=== PATIENT | male | born 1965 | race African-American/Black ===

== ENCOUNTER 2023-10-28 04:13 | Inpatient (IN) | payer OTHER, MEDICAID ==
[2023-10-28] VITALS (27 sets, daily range): BP systolic 81–132; BP diastolic 35–88; PULSE 77–168; RESP 15–41; TEMP 97.3–99.3; O2SAT 94–100
[~2023-10-28] VITALS: Ht 190.5 cm; Wt 86.2 kg
[2023-10-28] MEDS: dilTIAZem 25 MG/5 ML VIAL IV ONE ×3 (04:33→05:30)
[2023-10-28] MEDS: LORazepam 2MG/ML-1ML VIAL ONE (04:33)
[2023-10-28] MEDS: LORazepam 2MG/ML-1ML VIAL IV ONE ×3 (04:34→12:17)
[2023-10-28 05:16] LABS: Basophils # (auto) 0 10 ^3/uL (0-0.2); Basophils % (auto) 0.3 % (0.0-2.0); Eosinophils # (auto) 0 10 ^3/uL (0-0.8); Hematocrit 37.7 % (41.0-53.0); Hemoglobin 11.8 g/dL (13.5-17.5); Lymphocytes # (auto) 0.4 10 ^3/uL (0.4-5.4); Lymphocytes % (auto) 8.3 % (10.0-50.0); Mean Corpuscular Hemoglobin 28.3 pg (28.0-32.0); Mean Corpuscular Hgb Conc. 31.4 g/dL (32.0-36.0); Monocytes # (auto) 0.3 10 ^3/uL (0-1.3); Monocytes % (auto) 5.6 % (0.0-12.0); Neutrophils % (auto) 85.8 % (37.0-80.0); Nucleated Red Blood Cells % 0.8 %; Red Blood Cells 4.18 10^6/uL (4.5-5.90); Red Cell Distribution Width 16.9 % (11.8-14.3); White Blood Cell 4.7 10^3/uL (4.4-10.8)
[2023-10-28 05:32] LABS: Alanine Aminotransferase 387 U/L (7-40); Albumin 3.9 g/dL (3.2-4.8); Alkaline Phosphatase 64 U/L (46-116); Anion Gap 18 (5-15); Aspartate Aminotransferase 659 U/L (13-40); BUN/Creatinine Ratio 9.7 (10.0-20.0); Blood Urea Nitrogen 11 mg/dL (9-23); Calcium 8.8 mg/dL (8.5-10.1); Carbon Dioxide 19 mmol/L (20-30); Chloride 106 mmol/L (98-107); Glucose 122 mg/dL (74-106); Potassium 3.6 mmol/L (3.5-5.1); Sodium 143 mmol/L (136-145)
[2023-10-28 05:33] LABS: Total Protein 7.2 g/dL (5.7-8.2)
[2023-10-28] MEDS: ALBUTEROL SULF 2.5 MG/0.5ML(0.5%) NEB SOLN NEB ONE (05:50)
[2023-10-28] MEDS: methylPREDNISolone SOD SUCC 125 MG/2 ML VL IV ONE (06:04)
[2023-10-28 06:05] LABS: INR 1.42 (0.9-1.15); Partial Thromboplastin Time 27.2 SEC (24.5-34.5); Prothrombin Time 14.6 sec (9.3-11.8)
[2023-10-28 06:12] LABS: Base Excess -7.1 mmol/L (-2.0-2.0)
[2023-10-28] MEDS: cefTRIAXone 1GM/50ML D5W 50 ML IV ONE (08:04)
[2023-10-28 10:23] LABS: Urine Bacteria NONE SEEN /hpf (None Seen); Urine Blood Negative /uL (Negative); Urine Clarity HAZY (Clear); Urine Color Yellow (Yellow); Urine Hyaline Cast MANY /lpf (0 - 2); Urine Mucus FEW (None Seen); Urine Protein, UAD 3+ (Negative); Urine WBC 4 /hpf (0 - 3)
[2023-10-28] MEDS: AMIODARONE BOLUS KIT 100 ML IV ONE (11:13)
[2023-10-28] MEDS: ENOXAPARIN SOD 80 MG/0.8ML SYRINGE SC ONE (11:29)
[2023-10-28] MEDS: FUROSEMIDE 40 MG/4 ML VIAL IV ONE ×2 (11:31→15:27)
[2023-10-28] MEDS: AMIODARONE 450mg/250ml AE 250 ML IV SCH (11:40)
[2023-10-28] MEDS: ETOMIDATE (2MG/ML) 20ML VIAL IV ONE (13:05)
[2023-10-28] MEDS: ROCURONIUM 10MG/ML 10ML VIAL IV ONE (13:06)
[2023-10-28] MEDS: MIDAZOLAM DRIP 50 mg/50mL 50 ML IV SCH (13:14)
[2023-10-28] MEDS: IOHEXOL 350 MG/ML 100ML IJ ONE ×2 (13:14→17:21)
[2023-10-28] MEDS ORDERED: ONDANSETRON HCL 4 MG/2 ML VIAL IV PRN (13:45)
[2023-10-28] MEDS ORDERED: NITROGLYCERIN 0.4 MG SL TAB SL PRN (13:45)
[2023-10-28] MEDS ORDERED: DOCUSATE SOD 100 MG CAP PO PRN (13:45)
[2023-10-28] MEDS ORDERED: MORPHINE SULFATE INJ 2 MG/ml SYRG IV PRN (13:45)
[2023-10-28] MEDS ORDERED: DEXTROSE (50%) 50ML SYRG IV PRN (13:45)
[2023-10-28 14:30] LABS: Base Excess -16.7 mmol/L (-2.0-2.0)
[2023-10-28] MEDS ORDERED: LISI-275 PO (14:52)
[2023-10-28] MEDS ORDERED: BISO10TA31 PO (14:52)
[2023-10-28] MEDS ORDERED: FENO160T PO (14:52)
[2023-10-28] MEDS: NOREPINEPHRINE 8 MG/250ML KIT 250 ML IV SCH (14:53)
[2023-10-28] MEDS: NOREPINEPHRINE 8 MG/250ML KIT 250 ML IV ONE (15:09)
[2023-10-28] MEDS: PANTOPRAZOLE 40 MG/10 ML VIAL INJ IV ONE (15:27)
[2023-10-28] MEDS: DOXYCYCLINE 100MG/250ML 250 ML IV SCH (15:34)
[2023-10-28] MEDS: MAGNESIUM SULFATE 1GM/100ML 100 ML IV SCH (15:37)
[2023-10-28] MEDS: SODIUM BICARB 8.4% 50Meq/50ml SYR Vial IV ONE (15:42)
[2023-10-28 15:48] LABS: Amphetamine Screen, Urine Neg (NEGATIVE)
[2023-10-28 15:49] LABS: Barbiturate Scree,Urine Neg (NEGATIVE); Benzodiazephine Screen, Urine Neg (NEGATIVE); Cannabinoid Screen, Urine Neg (NEGATIVE); Cocaine Screen, Urine Neg (NEGATIVE); Opiate Scree,Urine Neg (NEGATIVE); Phencyclidine Screen, Urine Neg (NEGATIVE)
[2023-10-28 16:29] LABS: Base Excess -11.7 mmol/L (-2.0-2.0)
[2023-10-28] MEDS: SODIUM CHLORIDE 0.9% 500 ML IV ONE (17:28)
[2023-10-28] MEDS ORDERED: AMIODARONE 450mg/250ml AE 250 ML IV SCH (17:30)
[2023-10-28 17:49] LABS: Lactic Acid w/Reflex 9.6 mmol/L (0.4-2.0)
[2023-10-28] MEDS: InsuLIN REG 1unit/0.01ml Soln (100units/ml) SC SCH (18:00)
[2023-10-28] MEDS: SODIUM BICARB 50mEq/50ml Vial 50 ML in SOD CHL 0.45% 1,000 ML IV SCH (18:08)
[2023-10-28] MEDS: ACCU-CHEK COMFORT CURVE STRIP VI SCH (18:13)
[2023-10-28] MEDS: LEVALBUTEROL HCL 1.25 MG/3 ML NEB NEB SCH (18:25)
[2023-10-28 19:03] LABS: Chloride 106 mmol/L (98-107); Potassium 4.8 mmol/L (3.5-5.1); Sodium 146 mmol/L (136-145)
[2023-10-28 19:04] LABS: Anion Gap 21 (5-15); Calcium 8.7 mg/dL (8.7-10.4); Carbon Dioxide 19 mmol/L (20-30)
[2023-10-28 19:09] LABS: BUN/Creatinine Ratio 12.2 (10.0-20.0); Blood Urea Nitrogen 18 mg/dL (9-23); Glucose 134 mg/dL (74-106)
[2023-10-28] MEDS: fentaNYL Drip 2500mCg/250mlNS 250 ML IV SCH (20:07)
[2023-10-28] MEDS: IPRATROPIUM BROM 0.5 MG/2.5ML INH SOL NEB SCH (21:12)
[2023-10-28] MEDS: ALBUMIN 5% 250 ML IV ONE ×2 (21:24→22:34)
[2023-10-28] MEDS: ENOXAPARIN SOD 80 MG/0.8ML SYRINGE SC SCH (21:40)
[2023-10-28 22:48] LABS: Base Excess -8.9 mmol/L (-2.0-2.0)
[2023-10-29] VITALS (109 sets, daily range): BP systolic 92–136; BP diastolic 58–93; PULSE 78–105; RESP 12–25; TEMP 98.1–99.1; O2SAT 94–100
[2023-10-29 00:58] LABS: Lactic Acid w/Reflex 8.8 mmol/L (0.4-2.0)
[2023-10-29 03:15] LABS: Hemoglobin 10.2 g/dL (13.5-17.5); Red Cell Distribution Width 17.2 % (11.8-14.3)
[2023-10-29 03:16] LABS: Hematocrit 33.4 % (41.0-53.0); Mean Corpuscular Hemoglobin 28.1 pg (28.0-32.0); Mean Corpuscular Hgb Conc. 30.6 g/dL (32.0-36.0); Mean Corpuscular Volume 91.9 fL (80.0-100.0); Red Blood Cells 3.63 10^6/uL (4.5-5.90); White Blood Cell 15.5 10^3/uL (4.4-10.8)
[2023-10-29 03:19] LABS: Basophils % (manual) 0 (0.0-2.0); Blast Cells 0; Eosinophils % (manual) 0 (0-7); Metamyelocytes % 0; Monocytes % (manual) 0 (0-12); Myelocytes % 0; Promyelocytes % 0; Reactive Lymphocytes 0
[2023-10-29 03:30] LABS: Band Neutrophils % (manual) 13; Lymphocytes % (manual) 1 (10.0-50.0)
[2023-10-29 03:31] LABS: Platelet Estimate Decreased
[2023-10-29 03:32] LABS: INR 2.19 (0.9-1.15); Partial Thromboplastin Time 32.2 SEC (24.5-34.5); Prothrombin Time 21.8 sec (9.3-11.8)
[2023-10-29 03:33] LABS: Albumin 3.5 g/dL (3.2-4.8); Alkaline Phosphatase 52 U/L (46-116); Anion Gap 14 (5-15); BUN/Creatinine Ratio 14.6 (10.0-20.0); Bilirubin, Total 2.2 mg/dL (0.2-1.0); Blood Urea Nitrogen 22 mg/dL (9-23); Calcium 7.4 mg/dL (8.5-10.1); Carbon Dioxide 23 mmol/L (20-30); Chloride 106 mmol/L (98-107); Cholesterol 90 mg/dL (< 200); Glucose 214 mg/dL (74-106); HDL Cholesterol 39 mg/dL (40-59); LDL Cholesterol 41 mg/dL (< 100); Potassium 4.7 mmol/L (3.5-5.1); Sodium 143 mmol/L (136-145); Triglycerides 41 mg/dL (< 150)
[2023-10-29 03:45] LABS: Aspartate Aminotransferase > 6000 U/L (13-40)
[2023-10-29 03:46] LABS: Alanine Aminotransferase 2903 U/L (7-40)
[2023-10-29 03:57] LABS: Magnesium 1.6 mg/dL (1.6-2.6)
[2023-10-29 06:31] LABS: Lactic Acid w/Reflex 4.7 mmol/L (0.4-2.0)
[2023-10-29 07:24] LABS: Base Excess -1.9 mmol/L (-2.0-2.0)
[2023-10-29] MEDS: cefTRIAXone 1GM/50ML D5W 50 ML IV SCH (09:18)
[2023-10-29] MEDS: PANTOPRAZOLE 40 MG/10 ML VIAL INJ IV SCH (09:31)
[2023-10-29] MEDS: FUROSEMIDE 20 MG/2 ML VIAL IV SCH (09:32)
[2023-10-29] MEDS: CLOPIDOGREL BISULFATE 75 MG TAB PO SCH (09:32)
[2023-10-29 12:48] LABS: Lactic Acid w/Reflex 2.7 mmol/L (0.4-2.0)
[2023-10-29] MEDS: MAGNESIUM SULFATE 1GM/100ML 100 ML IV SCH (17:27)
[2023-10-29] MEDS: THIAMINE 100mg/ml INJ (200mg/2ml VIAL) IV ONE (17:27)
[2023-10-29] MEDS: FOLIC ACID 1 MG in D5W 5% 50 ML INJ ONE (18:08)
[2023-10-29 19:28] LABS: Lactic Acid w/Reflex 2.5 mmol/L (0.4-2.0)
[2023-10-29] MEDS: AMIODARONE HCL 200 MG TAB PO SCH (21:35)
[2023-10-30] VITALS (106 sets, daily range): BP systolic 81–146; BP diastolic 51–91; PULSE 70–135; RESP 14–24; TEMP 98.4–102; O2SAT 92–100
[2023-10-30 04:08] LABS: Basophils # (auto) 0 10 ^3/uL (0-0.2); Basophils % (auto) 0.1 % (0.0-2.0); Eosinophils # (auto) 0 10 ^3/uL (0-0.8); Hematocrit 31.7 % (41.0-53.0); Lymphocytes # (auto) 0.5 10 ^3/uL (0.4-5.4); Lymphocytes % (auto) 4.4 % (10.0-50.0); Mean Corpuscular Hgb Conc. 31.4 g/dL (32.0-36.0); Mean Corpuscular Volume 89.2 fL (80.0-100.0); Monocytes # (auto) 0.2 10 ^3/uL (0-1.3); Monocytes % (auto) 1.7 % (0.0-12.0); Neutrophils # (auto) 11.5 10 ^3/uL (1.6-8.6); Neutrophils % (auto) 93.8 % (37.0-80.0); Nucleated Red Blood Cells % 0.1 %; Red Blood Cells 3.56 10^6/uL (4.5-5.90); Red Cell Distribution Width 17.1 % (11.8-14.3); White Blood Cell 12.2 10^3/uL (4.4-10.8)
[2023-10-30 04:24] LABS: Albumin 3.2 g/dL (3.2-4.8); Alkaline Phosphatase 55 U/L (46-116); Anion Gap 7 (5-15); BUN/Creatinine Ratio 21.5 (10.0-20.0); Bilirubin, Total 2.1 mg/dL (0.2-1.0); Blood Urea Nitrogen 17 mg/dL (9-23); Calcium 7.7 mg/dL (8.7-10.4); Chloride 106 mmol/L (98-107); Glucose 104 mg/dL (74-106); Magnesium 1.9 mg/dL (1.6-2.6); Potassium 3.4 mmol/L (3.5-5.1); Sodium 146 mmol/L (136-145); Total Protein 5.8 g/dL (5.7-8.2)
[2023-10-30 04:38] LABS: Alanine Aminotransferase 2773 U/L (7-40); Aspartate Aminotransferase > 6000 U/L (13-40); Carbon Dioxide 33 mmol/L (20-30)
[2023-10-30] MEDS: CALCIUM GLUC 1,000mg/50ml-NS 50 ML IV ONE (06:45)
[2023-10-30] MEDS: POTASSIUM CHL 20MEQ/100ML 100 ML IV SCH (06:45)
[2023-10-30 07:40] LABS: Base Excess 5.3 mmol/L (-2.0-2.0)
[2023-10-30] MEDS ORDERED: CLOP75TA28 PO (09:46)
[2023-10-30] MEDS ORDERED: OMEP20TA PO (09:46)
[2023-10-30] MEDS ORDERED: FURO40TA4 PO (09:46)
[2023-10-30] MEDS ORDERED: HYDR-4798 PO (09:46)
[2023-10-30] MEDS ORDERED: METF-370 PO (09:46)
[2023-10-30] MEDS ORDERED: ATOR20TA PO (09:46)
[2023-10-30] MEDS ORDERED: POTA10TA51 PO (09:46)
[2023-10-30] MEDS: THIAMINE 100mg/ml INJ (200mg/2ml VIAL) IV SCH (09:56)
[2023-10-30] MEDS: LACTULOSE 20Gm/30ML SOLN PO SCH (09:57)
[2023-10-30] MEDS ORDERED: Jevity 1.2 Cal/Fiber 1 Liter GT SCH (11:45)
[2023-10-30] MEDS: FOLIC ACID 1 MG in D5W 5% 50 ML INJ SCH (11:54)
[2023-10-30] MEDS: PROPOFOL 100 ML IV ONE (12:05)
[2023-10-30] MEDS: AMIODARONE BOLUS KIT 100 ML IV ONE ×2 (12:06)
[2023-10-30] MEDS: AMIODARONE 450mg/250ml AE 250 ML IV ONE (12:06)
[2023-10-30] MEDS: AMIODARONE 450mg/250ml AE 250 ML IV SCH ×3 (12:15→19:10)
[2023-10-30] MEDS: PROPOFOL 100 ML IV SCH (12:30)
[2023-10-30] MEDS: CEFEPIME 2GM/50ML NS 50 ML IV SCH (13:08)
[2023-10-30] MEDS: EMPAGLIFLOZIN 10 MG TAB PO SCH (13:12)
[2023-10-30] MEDS ORDERED: VANCOMYCIN PER PHARMACY 0 MG IV SCH (14:15)
[2023-10-30] MEDS: VANCOMYCIN 1GM/200ML 200 ML IV ONE (14:45)
[2023-10-30] MEDS: IBUPROFEN 100MG/5ML ORAL SUSP 100 MG/5 ML UD GT ONE (18:33)
[2023-10-30] MEDS ORDERED: KETOROLAC TROMETH 30 MG/ML 1ML VIAL IV PRN (20:45)
[2023-10-31] VITALS (108 sets, daily range): BP systolic 75–132; BP diastolic 51–99; PULSE 89–155; RESP 20–24; TEMP 98.8–99.7; O2SAT 96–100
[2023-10-31 04:16] LABS: Basophils # (auto) 0 10 ^3/uL (0-0.2); Basophils % (auto) 0.1 % (0.0-2.0); Eosinophils # (auto) 0.1 10 ^3/uL (0-0.8); Eosinophils % (auto) 0.8 % (0.0-7.0); Hemoglobin 10.8 g/dL (13.5-17.5); Lymphocytes # (auto) 1.2 10 ^3/uL (0.4-5.4); Lymphocytes % (auto) 16.9 % (10.0-50.0); Mean Corpuscular Hemoglobin 28.7 pg (28.0-32.0); Mean Corpuscular Hgb Conc. 31.8 g/dL (32.0-36.0); Mean Corpuscular Volume 90.1 fL (80.0-100.0); Monocytes # (auto) 0.4 10 ^3/uL (0-1.3); Monocytes % (auto) 5.1 % (0.0-12.0); Neutrophils # (auto) 5.3 10 ^3/uL (1.6-8.6); Neutrophils % (auto) 77.1 % (37.0-80.0); Nucleated Red Blood Cells % 0.2 %; Red Blood Cells 3.77 10^6/uL (4.5-5.90); Red Cell Distribution Width 17.4 % (11.8-14.3); White Blood Cell 6.9 10^3/uL (4.4-10.8)
[2023-10-31 04:28] LABS: INR 1.64 (0.9-1.15); Partial Thromboplastin Time 29.1 SEC (24.5-34.5); Prothrombin Time 16.7 sec (9.3-11.8)
[2023-10-31 04:35] LABS: Alkaline Phosphatase 57 U/L (46-116); Anion Gap 6 (5-15); BUN/Creatinine Ratio 19.4 (10.0-20.0); Bilirubin, Total 2.9 mg/dL (0.2-1.0); Blood Urea Nitrogen 13 mg/dL (9-23); Calcium 8.1 mg/dL (8.7-10.4); Carbon Dioxide 31 mmol/L (20-30); Chloride 107 mmol/L (98-107); Glucose 99 mg/dL (74-106); Magnesium 1.7 mg/dL (1.6-2.6); Phosphorus 1.5 mg/dL (2.4-5.1); Potassium 3.5 mmol/L (3.5-5.1); Sodium 144 mmol/L (136-145); Total Protein 5.7 g/dL (5.7-8.2)
[2023-10-31 04:46] LABS: Aspartate Aminotransferase 3555 U/L (13-40)
[2023-10-31 04:50] LABS: Alanine Aminotransferase 2096 U/L (7-40)
[2023-10-31] MEDS: VANCOMYCIN 1GM/200ML 200 ML IV SCH (05:01)
[2023-10-31] MEDS: POTASSIUM PHOSPHATE 22 MEQ in SODIUM CHL 0.9% 100 ML IV ONE (07:00)
[2023-10-31] MEDS: POTASSIUM CHLORIDE 20 MEQ, LIDOCAINE 1% (LOCAL ANESTH.) 2 ML in SODIUM CHL 0.9% 100 ML IV ONE (07:00)
[2023-10-31 08:29] LABS: Base Excess 2.7 mmol/L (-2.0-2.0)
[2023-10-31] MEDS ORDERED: POTASSIUM CHL 20MEQ/100ML 100 ML IV SCH (09:00)
[2023-10-31] MEDS: MAGNESIUM SULFATE 1GM/100ML 100 ML IV ONE (09:17)
[2023-10-31] MEDS ORDERED: ENOXAPARIN SOD 80 MG/0.8ML SYRINGE SC SCH (10:00)
[2023-10-31] MEDS: FUROSEMIDE 20 MG/2 ML VIAL IV SCH (10:13)
[2023-10-31] MEDS: ASPirin 81 mg TAB PO SCH (10:14)
[2023-10-31] MEDS: POTASSIUM CHL 20MEQ/100ML 100 ML IV ONE (10:35)
[2023-10-31] MEDS: cefTRIAXone 1GM/50ML D5W 50 ML IV ONE (18:48)
[2023-11-01] VITALS (69 sets, daily range): BP systolic 86–126; BP diastolic 59–107; PULSE 89–145; RESP 17–22; TEMP 99–102.4; O2SAT 98–100
[2023-11-01 04:48] LABS: Basophils # (auto) 0 10 ^3/uL (0-0.2); Eosinophils # (auto) 0.2 10 ^3/uL (0-0.8); Hemoglobin 11.1 g/dL (13.5-17.5); Red Cell Distribution Width 17.9 % (11.8-14.3); White Blood Cell 6.4 10^3/uL (4.4-10.8)
[2023-11-01 04:52] LABS: Basophils % (auto) 0.3 % (0.0-2.0); Eosinophils % (auto) 2.6 % (0.0-7.0); Hematocrit 35.3 % (41.0-53.0); Lymphocytes # (auto) 1.2 10 ^3/uL (0.4-5.4); Lymphocytes % (auto) 19.5 % (10.0-50.0); Mean Corpuscular Hemoglobin 28.1 pg (28.0-32.0); Mean Corpuscular Hgb Conc. 31.4 g/dL (32.0-36.0); Mean Corpuscular Volume 89.5 fL (80.0-100.0); Monocytes # (auto) 0.9 10 ^3/uL (0-1.3); Monocytes % (auto) 13.6 % (0.0-12.0); Neutrophils # (auto) 4.1 10 ^3/uL (1.6-8.6); Nucleated Red Blood Cells % 0.5 %; Red Blood Cells 3.94 10^6/uL (4.5-5.90)
[2023-11-01 05:15] LABS: Albumin 2.9 g/dL (3.2-4.8); Alkaline Phosphatase 56 U/L (46-116); Anion Gap 7 (5-15); BUN/Creatinine Ratio 20.7 (10.0-20.0); Blood Urea Nitrogen 12 mg/dL (9-23); Calcium 8.1 mg/dL (8.7-10.4); Carbon Dioxide 29 mmol/L (20-30); Chloride 107 mmol/L (98-107); Glucose 89 mg/dL (74-106); Magnesium 1.8 mg/dL (1.6-2.6); Potassium 4.1 mmol/L (3.5-5.1); Sodium 143 mmol/L (136-145)
[2023-11-01 05:16] LABS: Bilirubin, Total 3.1 mg/dL (0.2-1.0); Phosphorus 1.9 mg/dL (2.4-5.1); Total Protein 5.9 g/dL (5.7-8.2)
[2023-11-01 05:27] LABS: Aspartate Aminotransferase 1607 U/L (13-40)
[2023-11-01 05:29] LABS: Alanine Aminotransferase 1388 U/L (7-40)
[2023-11-01 08:28] LABS: Base Excess -0.9 mmol/L (-2.0-2.0)
[2023-11-01] MEDS: cefTRIAXone 1GM/50ML D5W 50 ML IV SCH (09:56)
[2023-11-01] MEDS: MAGNESIUM SULFATE 1GM/100ML 100 ML IV SCH (11:32)
[2023-11-01] MEDS: IBUPROFEN 100MG/5ML ORAL SUSP 100 MG/5 ML UD GT ONE (12:39)
[2023-11-03 08:52] LABS: Hepatitis B Surface Antigen Negative (Negative)
[2023-11-03 09:13] LABS: Hepatitis A Ab IgM Negative
[2023-11-03 09:14] LABS: Hepatitis B Core IgM Negative; Hepatitis C Antibody Negative (Negative)
== END 2023-11-01 16:02 | disposition short-term general hospital (02) | DRG 871 ==
LOC: EDBD 04:13 → ER 04:13 → ICU WEST 13:59 → TELE 13:59 → ICU WEST 20:46
PROVIDERS: ADMIT Internal Medicine Pulmonary Disease; ATTEND Anesthesiology
PROC: 5A1945Z Respiratory Ventilation, 24-96 Consecutive Hours (ICD-10-PCS; principal; 2023-10-28)
PROC: 0BH17EZ Insertion of Endotracheal Airway into Trachea, Via Natural or Artificial Opening (ICD-10-PCS; 2023-10-28)
PROC: 02HV33Z Insertion of Infusion Device into Superior Vena Cava, Percutaneous Approach (ICD-10-PCS; 2023-10-28)
PROC: B548ZZA Ultrasonography of Superior Vena Cava, Guidance (ICD-10-PCS; 2023-10-28)
PROC: 5A09357 Assistance with Respiratory Ventilation, Less than 24 Consecutive Hours, Continuous Positive Airway Pressure (ICD-10-PCS; 2023-10-28)
DX: A41.9 Sepsis, unspecified organism (principal); I21.A1 Myocardial infarction type 2; J15.69 Pneumonia due to other Gram-negative bacteria; I50.43 Acute on chronic combined systolic (congestive) and diastolic (congestive) heart failure; R65.21 Severe sepsis with septic shock; K72.00 Acute and subacute hepatic failure without coma; N17.0 Acute kidney failure with tubular necrosis; R57.0 Cardiogenic shock; J96.01 Acute respiratory failure with hypoxia; J15.9 Unspecified bacterial pneumonia; E87.20 Acidosis, unspecified; I42.0 Dilated cardiomyopathy; I47.29 Other ventricular tachycardia; I48.92 Unspecified atrial flutter; D68.69 Other thrombophilia; E11.9 Type 2 diabetes mellitus without complications; I11.0 Hypertensive heart disease with heart failure; I25.10 Atherosclerotic heart disease of native coronary artery without angina pectoris; E78.5 Hyperlipidemia, unspecified; I95.9 Hypotension, unspecified; F10.10 Alcohol abuse, uncomplicated; R74.01 Elevation of levels of liver transaminase levels; D69.6 Thrombocytopenia, unspecified; K21.9 Gastro-esophageal reflux disease without esophagitis; D64.9 Anemia, unspecified; I48.0 Paroxysmal atrial fibrillation; Y90.9 Presence of alcohol in blood, level not specified; I25.2 Old myocardial infarction; Z79.02 Long term (current) use of antithrombotics/antiplatelets; Z95.5 Presence of coronary angioplasty implant and graft
CPT/HCPCS: 36415; 36600; 71045; 71275; 76705; 80048; 80053; 80061; 80074; 80202; 80307; 81001; 82140; 82805; 82962; 83036; 83605; 83735; 83880; 84100; 84443; 84484; 85007; 85025; 85027; 85379; 85610; 85730; 87040; 87070; 87077; 87081; 87086; 87186; 87205; 93005; 93306; 94002; 94003; 94640; 94660; 96365; 96366; 96367; 96372; 96375; 99291; C9113; G0378; J0692; J1815; J2001; J2250; J2704; J3480; J3490; J7060